=== PATIENT | male | born 1990 | race Caucasian/White ===

== ENCOUNTER 2023-10-08 12:01 | Emergency (ER) | payer MEDICAID, SELFPAY ==
[2023-10-08 12:05] VITALS: BP 130/69; PULSE 92; O2SAT 97
[2023-10-08 12:09] VITALS: BP 130/69; PULSE 102; RESP 14; TEMP 36.9; O2SAT 98; BMI 30.1
--- NOTE | 2023-10-08 12:19 | CT_ITS ---
PROCEDURE INFORMATION: Exam: CT Maxillofacial Without Contrast Exam date and time: 10/08/2023 12:33 PM Age: 33 years old Clinical indication: Injury or trauma; Other: Baseball to face; Blunt trauma (contusions or hematomas); Nose; Additional info: Baseball to face, midface pain TECHNIQUE: Imaging protocol: Computed tomography of the face without contrast. Radiation optimization: All CT scans at this facility use at least one of these dose optimization techniques: automated exposure control; mA and/or kV adjustment per patient size (includes targeted exams where dose is matched to clinical indication); or iterative reconstruction. COMPARISON: No relevant prior studies available. FINDINGS: Orbital cavities: Globes are symmetric. Orbital rims/jorge are intact. Intraconal fat appear unremarkable. Lacrimal glands are unremarkable. Paranasal sinuses: Normal. No air-fluid levels. Bones: No acute fracture of the maxillofacial region. Soft tissues: Unremarkable. IMPRESSION: No acute fracture of the maxillofacial region.
[2023-10-08] MEDS: ACETAMINOPHEN 500MG TAB 1000 MG PO (12:29)
[2023-10-08] MEDS: IBUPROFEN 400 MG TABLET 800 MG PO (12:29)
[2023-10-08] MEDS: LIDOCAINE 1% W/EPI 1:100,000 20ML VIAL 20 ML IJ (12:30)
--- NOTE | 2023-10-08 12:41 | ED_ITS ---
Discharge Plan Disposition Patient Disposition: Home, Self-Care Condition: Good Referrals Follow up/Referrals: Jose Martin MD [Primary Care Provider] - See instructions Activity Restrictions/Add. Instructions Additional Instructions/Restrictions: You were evaluated in the emergency department today. For your eye, use the ointment provided to you 3-4 times a day while awake for the next 3 days or until your symptoms have resolved. Follow-up closely with an eye doctor. Please keep your wounds clean and dry. Do not submerge under any water until they have completely healed. Running water over your face in the shower is okay. Your sutures are absorbable and should dissolve over the next 7 to 10 days. The glue on your nose will come off on its own. Follow-up closely with your primary care provider for wound recheck. Take Tylenol and ibuprofen at home as needed for pain. Return to the emergency department for new or worsening symptoms, such as significant worsening in pain, pus draining from the wounds, or new redness/swelling. Clinical Impressions Clinical Impression: Face lacerations, Corneal abrasion, left Stand Alone Forms Stand Alone Forms: Work/School Release Instructions Patient Instructions: DI for Corneal Abrasion, DI for Laceration Repair Discharge ED Provider: Susan Ferrer General Adult HPI General Chief complaint: Wound/Laceration Stated complaint: laceration in between eyes on forhead Time Seen by Provider: 10/08/23 12:09 Mode of Arrival: Ambulatory Source of Information: Patient Limitations: No Limitations Description of Symptoms (Recalled from ER Triage Doc. by RN): pt states he was at a baseball practice and was the catcher. pt was hit in the face with a foul ball. pt presents with a lac between his eyebrows and on the bridge of his nose from impact. pt denies LOC. pt states his pain is 6/10, dull and pressure. the lacs are not bleeding at this time. pt reports his last tetnus vaccine was 2years ago. History of Present Illness HPI narrative: This patient is a 33-year-old male who denies significant past medical history presenting to the emergency department for evaluation with concern for laceration to the face. Patient was at baseball practice and he was a catcher when a foul ball came back and hit him in the face. He has a laceration between his eyebrows as well as a small laceration to his nose. No loss of consciousness noted. No bleeding from his nose noted. No visual disturbance or other concerns. He was well prior to this. His last tetanus shot was within the last 2 to 3 years. Related Data Allergies Allergy/AdvReac Type Severity Reaction Status Date / Time bupropion [From Wellbutrin] AdvReac Intermediate Other Verified 10/08/23 12:16 [facility] Disclaimer: The information contained in this section may have been updated after the patient was seen, as this information can be updated by other users. Social History Smoking Status: Current every day smoker alcohol intake: never current occupational status: employed Travel in the last 8 weeks: None ROS Obtained: Yes All systems reviewed & no additional complaints except as documented Physical Exam General General appearance: alert and in no apparent distress Head Head exam: normocephalic and other (2 cm laceration between the eyebrows that is linear and hemostatic. Very superficial 1 cm laceration to the bridge of the no se. No significant soft tissue swelling. No palpable bony step-offs or instability.) Eye Eye exam: Present normal appearance, PERRL and EOMI ENT ENT exam: Present normal oropharynx, mucous membranes moist, normal external ear exam and other (Lacerations as above. No septal hematoma, bleeding from the nose, or other concerns.) Neck Neck exam: Present normal inspection, full ROM and trachea midline; Absent tenderness Chest Chest inspection: Present normal inspection and symmetric chest wall rise; Absent tenderness Respiratory Respiratory exam: Present normal lung sounds bilaterally; Absent respiratory distress, wheezes, stridor or accessory muscle use Cardiovascular Cardiovascular exam: Present regular rate and normal rhythm Abdominal Exam Abdominal exam: Present soft; Absent distention, tenderness or guarding Extremities Exam Extremities exam: Present normal inspection, full ROM and normal capillary refill; Absent tenderness or edema Back Exam Back exam: Present normal inspection and full ROM; Absent tenderness Neurological Exam Neurological exam: Present alert, oriented X3, CN II-XII intact and normal gait; Absent motor sensory deficit Psychiatric Psychiatric exam: Present normal affect and normal mood Skin Skin exam: Present warm and dry Medical Decision Making Medical Records Medical records reviewed: Yes I reviewed the patient's medical records. Pan Inquiry Pt receiving controlled substance: No Vital Signs: 10/08/23 12:05 10/08/23 12:09 Temperature 98.4 F Temperature Source Oral Pulse Rate 92 H Pulse Rate [Left] 102 H Respiratory Rate 14 Blood Pressure 130/69 Blood Pressure [Right Arm] 130/69 Blood Pressure Mean [Right Arm] 89 Blood Pressure Source [Right Arm] Automatic Cuff Blood Pressure Position [Right Arm] Sitting 02 Sat by Pulse Oximetry 97 98 Oxygen Delivery Method Room Air Room Air Lab Data Lab results reviewed: Yes I reviewed the patient's lab results. Orders (Tests/Meds): ED MEDICATIONS Discontinued Medications Generic Name Dose Route Start Last Admin Trade Name Allen PRN Reason Stop Dose Admin Acetaminophen 1,000 mg 10/08/23 12:19 10/08/23 12:29 Acetaminophen 500mg Tab PO 10/08/23 12:20 1,000 mg ONCE ONE Administration Ibuprofen 800 mg 10/08/23 12:19 10/08/23 12:29 Ibuprofen 400 Mg Tablet PO 10/08/23 12:20 800 mg ONCE ONE Administration Lidocaine/Epinephrine 20 ml 10/08/23 12:19 10/08/23 12:30 Lidocaine 1% W/Epi 1:100,000 20ml Vial IJ 10/08/23 12:20 20 ml ONCE ONE Administration ORDERS Category Date Time Status CT facial bones wo con Stat Cat Scan 10/08/23 12:19 Taken Medical Decision Narrative: In summary, this patient is a 33-year-old male presenting to the Emergency Department for evaluation of facial lacerations. Differential diagnoses considered include but are not limited to laceration, abrasion, foreign body, fracture, concussion. Ruling out the most morbid conditions drove assessment. On exam, the patient is very well-appearing. He has a laceration between his eyebrows that is 2 cm as well as a very superficial laceration to the bridge of his nose that is 1 cm. No palpable step-offs, deformities, no bleeding from the nose, and no septal hematoma noted. No loss of consciousness or neurologic symptoms that would suggest significant intracranial injury. Workup included CT scan of the face without IV contrast. Patient was given oral Tylenol and ibuprofen for pain. He is already up-to-date on tetanus. I independently interpreted CT scan prior to radiology read and noted no displaced fracture. Please see radiology read for final interpretation. Lacerations were repaired without difficulty after thorough irrigation and cleaning. Please see procedure notes for further documentation. While was repairing his lacerations, patient noted that he felt a foreign body sensation in his left eye. I did stain his left eye and noted a small corneal abrasion on the inferolateral aspect of his left eye. For this, I gave him topical antibiotic ointment here in the emergency department. He was given instructions for use and supportive management at home as well as instructions for close follow-up with an eye doctor and strict return precautions. He was also given instructions for wound care and strict return precautions should he develop any signs of infection. Patient was discharged in stable condition after all questions were answered. Procedures Risk/Benefits of Procedure(s) Were Explained: Yes Laceration Laceration 1: Site: face Size (cm): 2 Description: linear Depth: simple, single layer Local Anesthetic: lidocaine 1% and with epi Amount of anesthesia used (mL): 1.5 Pre-repair: wound explored Skin layer closed with: other (fast absorbing gut) Size (cm): 5-0 Number of sutures: 6 Technique: simple, interrupted Laceration 2: Site: face Size (cm): 1 Description: linear Depth: simple, single layer Pre-repair: wound explored, irrigated extensively and deep structures intact Skin layer closed with: Dermabond Critical Care Critical Care Time Critical Care Time: No
[2023-10-08 13:32] VITALS: BP 91/60; PULSE 65; RESP 20; TEMP 36.9; O2SAT 99
[2023-10-08] MEDS: POLYMYXIN B OP (13:32)
[2023-10-08] MEDS: DEXAMETHASONE OP (13:32)
[2023-10-08] MEDS: NEOMYCIN OP (13:32)
[2023-10-08] MEDS: TETRACAINE 0.5% OPTH SOL 15ML OP (13:32)
[2023-10-08 13:36] VITALS: BP 103/60; PULSE 82; RESP 20; TEMP 36.9; O2SAT 98
== END 2023-10-08 13:34 | disposition home or self-care (01) ==
PROVIDERS: Emergency Provider Emergency Medicine; PCP Family Medicine
DX: S01.81XA Laceration without foreign body of other part of head, initial encounter (principal); S05.02XA Injury of conjunctiva and corneal abrasion without foreign body, left eye, initial encounter; W21.03XA Struck by baseball, initial encounter; Y93.64 Activity, baseball
CPT/HCPCS: 12013; 70486; 99284

== ENCOUNTER 2024-09-28 10:16 | Outpatient (CLI) | payer MEDICAID, SELFPAY ==
--- OUTSIDE RECORDS SUMMARY | 2024-09-20 09:15 | XMS_ITS | Encounter Summary ---
Author Organization [place] [address] Care Team Providers Care Sheet Metal Mechanic Name Role Phone Miguelina Barrett APRN Primary Care Provider [phone] Reason for Visit * Reason Comments Establish Care Encounter Details Date Type Department Care Team (Late st Contact Info) Description 09/20/2024 9:15 AM EDT Office Visit [facility] [place] [address] [place] [address] Miguelina Barrett APRN [address] [place] [address] Encounter to establish care (Primary Dx); Chronic hepatitis C without hepatic coma (HCC); Uncomplicated opioid dependence (HCC); Polysubstance use disorder; Benzodiazepine dependence (HCC); Anxiety; Insomnia, persistent Social History Tobacco Use Types Packs/Day Years Used Date Smoking Tobacco: Former Cigarettes 0.5 11.7 S tarted: 02/02/2013 Smokeless Tobacco: Former Alcohol Use Standard Drinks/Week Comments No 0 (1 standard drink = 0.6 oz pur e alcohol) PHQ-2 Answer Date Recorded PHQ-2 Total Score 0 09/20/2024 Sexually Active Control Partners Comments Yes Condom Female Sex and Gender Information Value Date Recorded Sex Assigned at Not on file Legal Sex Male 9:21 PM EDT Gender Identity Not on file Sexual Orientation Not on file documented as of this encounter Last Filed Vital Signs Vital Sign Reading Time Taken Comments Blood Pressure 110/78 09/20/2024 9:11 AM EDT Pulse 100 09/20/2024 9:11 AM EDT Temperature 35.8 C (96.5 F) 09/20/2024 9:11 AM EDT Respiratory Rate 18 09/20/2024 9:11 AM EDT Oxygen Saturation 99% 09/20/2024 9:11 AM EDT Inhaled Oxygen Concentration - - Weight 72.9 kg (160 lb 12.8 oz) 09/20/2024 9:11 AM EDT Height - - Body Mass Index 23.07 02/02/2017 2:58 AM EST documented in this encounter Functional Status * PHQ-9 Total Score Answer Date of Assessment Author 0 09/20/2024 9:17 AM EDT Kaitlin Venegas MA * Question Answer Date of Assessment Author Little interest or pleasure in doing things 0 09/20/2024 9:17 AM EDT Susan Venegas MA Feeling down, depressed, or hopeless 0 0705/2024 9:17 AM EDT Susan Venegas MA PHQ-2 Total Score 0 09/20/2024 9:17 AM EDT Susan Venegas MA * PHQ-2 Total Score Answer Date of Assessment Author 0 09/20/2024 9:17 AM EDT Kaitlin Venegas MA documented as of this encounter Ordered Prescriptions Prescription Sig Dispense Quantity Refills Last Filled Start Date End Date QUEtiapine (SEROQUEL) 50 mg Oral TabletIndications: Insomnia, persistent Take 2 Tablets by mouth nightly. 60 Tablet 2 09/20/2024 lisinopriL (PRINIVIL;ZESTRIL) 10 mg Oral Tablet Take 1 Tablet by mouth daily. 90 Tablet 3 09/20/2024 hydrOXYzine (ATARAX) 50 mg Oral TabletIndications: Anxiety Take 1 Tablet by mouth 3 times daily as needed for Anxiety. 90 Tablet 2 09/20/2024 documented in this encounter Progress Notes * Miguelina Barrett APRN - 09/20/2024 9:15 AM EDTAssociated Problem(s): Hepatitis C virus infection without hepatic coma Per patient, was treated a year ago, had labs two months ago that were showed no active disease. * Miguelina Barrett APRN - 09/20/2024 9:15 AM EDTAssociated Problem(s): Uncomplicated opioid dependence (HCC) Followed by addiction medicine clinic in [place], [place]. On Brixadi and in counseling * Miguelina Barrett APRN - 09/20/2024 9:15 AM EDTAssociated Problem(s): Polysubstance use disorder Hx of polysubstance abuse. Sober from recreational drugs for several years. Not on Brixadi and formerly prescribed clonazepam. * Miguelina Barrett APRN - 09/20/2024 9:15 AM EDTAssociated Problem(s): Benzodiazepine dependence (HCC) Pt reports on Klonopin for years. Formerly prescribed by PCP at [facility] in [place]. Per pt, his former pcp left the practice and he was not able to get in with a new provider for 2.5 monthsto get it refilled so came here. I called and discussed this with the clinic and according to theirnotes, he was able to get right in with the new doctor and seen in July but had a failed drug screentherefore he was referred out to psychiatry and was given a 20-day refill (he may possibly be referring to psychiatry when saying he couldn't get into the new doctor for 2.5 months). He has been out completely for over a week. He has past withdrawal symptoms Advised that I will not refill his klonopin today. He was upset by this although he was made aware at scheduling that I will not prescribe controlled substances. I did provide him with contact information for [facility] or suggested he follow-up with his former PCP office. * Miguelina Barrett APRN - 09/20/2024 9:15 AM EDTAssociated Problem(s): Anxiety Long-standing history of anxiety, panic attacks. Reports he has tried several medications. Klonopinworks best for him. Advised that I will not refill or continue klonopin (this decision was made dueto the fact he is on buprenorphine and previously failed drug screen). Provided psych referral today. Sent in atarax 50mg TID and increased nightly seroquel dosing to help manage his symptoms. Orders: hydrOXYzine (ATARAX) 50 mg Oral Tablet; Take 1 Tablet by mouth 3 times daily as needed for Anxiety. * Miguelina Barrett APRN - 09/20/2024 9:15 AM EDT Assessment & Plan Encounter to establish care Chronic hepatitis C without hepatic coma (HCC) Per patient, was treated a year ago, had labs two months ago that were showed no active disease. Uncomplicated opioid dependence (HCC) Followed by addiction medicine clinic in [place], [place]. On Brixadi and in counseling Polysubstance use disorder Hx of polysubstance abuse. Sober from recreational drugs for several years. Not on Brixadi and formerly prescribed clonazepam. Benzodiazepine dependence (HCC) Pt reports on Klonopin for years. Formerly prescribed by PCP at [facility] in [place]. Per pt, his former pcp left the practice and he was not able to get in with a new provider for 2.5 monthsto get it refilled so came here. I called and discussed this with the clinic and according to theirnotes, he was able to get right in with the new doctor and seen in July but had a failed drug screentherefore he was referred out to psychiatry and was given a 20-day refill (he may possibly be referring to psychiatry when saying he couldn't get into the new doctor for 2.5 months). He has been out completely for over a week. He has past withdrawal symptoms Advised that I will not refill his klonopin today. He was upset by this although he was made aware at scheduling that I will not prescribe controlled substances. I did provide him with contact information for psychiatry [facility] or suggested he follow-up with his former PCP office. Anxiety Long-standing history of anxiety, panic attacks. Reports he has tried several medications. Klonopinworks best for him. Advised that I will not refill or continue klonopin (this decision was made dueto the fact he is on buprenorphine and previously failed drug screen). Provided psych referral today. Sent in atarax 50mg TID and increased nightly seroquel dosing to help manage his symptoms. Orders: hydrOXYzine (ATARAX) 50 mg Oral Tablet; Take 1 Tablet by mouth 3 times daily as needed for Anxiety. Insomnia, persistent Orders: QUEtiapine (SEROQUEL) 50 mg Oral Tablet; Take 2 Tablets by mouth nightly. Progress Note: Vitals: 09/20/24 0911 BP: 110/78 Pulse: 100 Resp: 18 Temp: 96.5 ??F (35.8 ??C) TempSrc: Temporal SpO2: 99% Weight: 160 lb 12.8 oz (72.9 kg) Body mass index is 23.07 kg/m??. SUBJECTIVE: Chief Complaint Patient presents with Establish Care HPI: Well Adult: Subjective Mr. Gimenez is a 34 y.o. male here for an establish care. PMH most sig for: Polysubstance abuse. Reports he has been off recreational drugs for several years. On suboxone injection from addiction medicine in [facility] Anxiety, panic attacks, insomnia. Most recently prescribed seroquel 50mg nightly and Klonopin 0.5mgBID. States that he has tried several medications for management of his symptoms and that these have been the most effective at managing his symptoms. His former [facility] prescribing his m edications but then left the practice. States that he was referred to another PCP in the same practice but couldn't get in for 2.5 months and now out of [facility]. According to care everywhere records, he did see the new PCP on 07/26/24, had a failed drug screen. He did refill his medication for 20 day supply with referral to psychiatry. I called and confirmed this with the office staff. His office note states: ?This patient comes in as a follow-up to abnormal screening for controlled substances. Patient was requesting clonazepam evidently had been on it has been on this medication for about 4 to 5 years hestates it does a good job at controlling his anxiety.He was wanting refill we got routine drug compliance testing which showed several other products including medicine phentermine andGabapentin.An appointment was made through psychiatry ER possible medication abuse physician. He has an appointmentin the latter part of this this month the patient was going to need his current clonazepam we will give him enough until his referral is is in process.Otherwise physical examination was not too remark able vital signs were normal no other changes are made thank you Patient states that he did run out over a week ago. Thinks may have had a seizure once. Has been feeling very anxious, irritable and on edge since running out. He has increased his night-time dose ofseroquel to help manage some of his night-time sypmptoms and that has helped. He was made aware at the time of scheduling his appointment that I do not write controlled medications. He then stated that he heard I can ask a doctor in the office to write it for him . I did explain that we do not follow that protocol Health Maintenance Due Topic Date Due Annual Wellness Exam Never done Hepatitis B Vaccine (1 of 3 - 19+ 3-dose series) Never done COVID-19 Vaccine ( season) Never done Health Maintenance Topic Date Due Annual Wellness Exam Never done Hepatitis B Vaccine (1 of 3 - 19+ 3-dose series) Never done COVID-19 Vaccine ( season) Never done Influenza Vaccine (1) 11/19/2024 DTaP/TDaP/Td (3 - Td or Tdap) 07/07/2031 Meningococcal B Vaccine Aged Out Pneumococcal Vaccine 0-49 Aged Out Immunization History Administered Date(s) Administered Tdap 11/11/2015 Patient Active Problem List Diagnosis Uncomplicated opioid dependence (HCC) Cannabis use disorder, mild, in controlled environment, abuse Creatinine elevation Hepatitis C virus infection without hepatic coma Polysubstance use disorder Benzodiazepine dependence (HCC) Anxiety Essential hypertension Past Medical History: Diagnosis Date Hepatitis C antibody test positive 02/02/2017 High blood pressure Panic disorder Substance abuse (HCC) last use 6 mths ago - ivda Past Surgical History: Procedure Laterality Date CYST REMOVAL to back of head TONSILLECTOMY Allergies Allergen Reactions Bupropion Hcl Other (See Comments) Wellbutrin- Hallucinations Current Outpatient Medications on File Prior to Visit Medication Sig Dispense Refill BRIXADI 96 mg/0.27 mL SubQ solution, extended rel syringe Inject 96 mg subcutaneously every four weeks clonazePAM (KLONOPIN) 0.5 mg Oral Tablet TAKE ONE (1) TABLET TWICE A DAY BY ORAL ROUTE NEEDED, FOR ANXIETY. No current facility-administered medications on file prior to visit. Social History Socioeconomic History Marital status: Single Spouse name: None Number of children: None Years of education: None Highest education level: None Tobacco Use Smoking status: Former Current packs/day: 0.50 Average packs/day: 0.5 packs/day for 11.6 years (5.8 ttl pk-yrs) Types: Cigarettes Start date: 02/02/2013 Smokeless tobacco: Former Vaping Use Vaping status: Every Day Substances: Nicotine, Flavoring Devices: Disposable Substance and Sexual Activity Alcohol use: No Drug use: Yes Comment: hx of ivda -heroin, mj rarely, opiates to [facility] 01/31/17 Sexual activity: Yes Partners: Female control/protection: Condom Social History Narrative Lives with father (recovered alcoholic and substance abuse). Has a cat named Bill. Family History Problem Relation Age of Onset Substance Abuse Mother Substance Abuse Father Alcohol Abuse Father Parkinson's Disease Father Anxiety Disorder Father COPD Father Skin Cancer Sister Arthritis Sister No Known Problems Sister No Known Problems Brother Bleeding Prob Maternal Grandmother Cancer Maternal Grandfather bone cancer Other (bone cancer) Maternal Grandfather No Known Problems Paternal Grandmother Dementia Paternal Grandfather No Known Problems Son No Known Problems Son No results found. No results found for this visit on 09/20/24. Patient Care Team: Miguelina Barrett APRN as PCP - General (Nurse Practitioner-Family) Lab Results Component Value Date WBC 8.6 02/01/2017 HGB 16.0 02/01/2017 HCT 46.9 02/01/2017 PLT 267 02/01/2017 ALT 61 (H) 02/01/2017 AST 53 (H) 02/01/2017 NA 140 02/01/2017 K 4.0 02/01/2017 CL 98 02/01/2017 CREATININE 1.33 (H) 02/01/2017 BUN 25 (H) 02/01/2017 CO2 22 02/01/2017 TSH 0.417 02/01/2017 GLU 100 02/01/2017 Review of Systems Constitutional: Negative for fever. HENT: Negative for congestion. Respiratory: Negative for cough, shortness of breath and wheezing. Cardiovascular: Negative for chest pain, palpitations and leg swelling. Psychiatric/Behavioral: Positive for decreased concentration, dysphoric mood and sleep disturbance.The patient is nervous/anxious. OBJECTIVE: Physical Exam Constitutional: Appearance: Normal appearance. HENT: Head: Normocephalic and atraumatic. Pulmonary: Effort: Pulmonary effort is normal. Neurological: Mental Status: He is alert and oriented to person, place, and time. Psychiatric: Attention and Perception: Attention normal. Mood and Affect: Mood is anxious. Speech: Speech normal. Behavior: Behavior is cooperative. documented in this encounter Miscellaneous Notes * Patient Instructions - Miguelina Barrett APRN - 09/20/2024 9:15 AM EDT Call to establish with Psychiatry for medication management. documented in this encounter Plan of Treatment Not on file documented as of this encounter Goals Goal Patient Goal Type Associated Problems Recent Progress Patient-Stated? Author Blood Pressure < 140/90 Blood Pressure 110/78(2024 9:11 AM EDT) No Miguelina Barrett APRN Eat better, exercise, reach an ideal body weight General No Barbosa, Susan N, RMA Stay Tobacco Free Lifestyle No Barbosa, Susan N, RMA documented as of this encounter Visit Diagnoses Diagnosis Encounter to establish care- Primary Reserved for inherently not codable concepts WITHOUT codable children Chronic hepatitis C without hepatic coma (HCC) Uncomplicated opioid dependence (HCC) Opioid type dependence, unspecified Polysubstance use disorder Benzodiazepine dependence (HCC) Sedative, hypnotic or anxiolytic dependence, unspecified Anxiety Anxiety state, unspecified Insomnia, persistent Persistent disorder of initiating or maintaining sleep documented in this encounter Discontinued Medications Medication Sig Discontinue Reason Start Date End Da te lisinopriL (PRINIVIL;ZESTRIL) 10 mg Oral Tablet Take 10 mg by mouth daily. Reorder 09/20/2024 QUEtiapine (SEROQUEL) 50 mg Oral Tablet TAKE ONE (1) TABLET BY MOUTH EVERY NIGHT AT BEDTIME Reorder 09/20/2024 documented as of this encounter Historical Medications * This list may reflect changes made after this encounter. BRIXADI 96 mg/0.27 mL SubQ solution, extended rel syringe Inject 96 mg subcutaneously every four weeks clonazePAM (KLONOPIN) 0.5 mg Oral Tablet TAKE ONE (1) TABLET TWICE A DAY BY ORAL ROUTE NEEDED, FOR ANXIETY. QUEtiapine (SEROQUEL) 50 mg Oral Tablet TAKE ONE (1) TABLET BY MOUTH EVERY NIGHT AT BEDTIME 5 lisinopriL (PRINIVIL;ZESTR [place]) 10 mg Oral Tablet Take 10 mg by mouth daily. 5 added in this encounter Care Teams Sheet Metal Mechanic Relationship Specialty Start Date End Date Miguelina Barrett [place] [address] [place] [address] PCP - General Nurse Practitioner-Family 09/20/24 documented as of this encounter
[2024-09-28 14:23] LABS: Hematocrit 46.8 % (42.0-52.0); Hemoglobin 15.3 g/dL (14.1-18.0); Immature Granulocytes % 0.4 %; Mean Corpuscular HGB Conc 32.7 g/dL (31.8-35.4); Mean Corpuscular Hemoglobin 29.3 pg (27.0-31.2); Mean Corpuscular Volume 89.5 fl (80-94); Nucleated Red Blood Cells % 0 %; Platelet Count 348 K/mm3 (142-424); Red Blood Count 5.23 M/mm3 (4.60-6.20); Red Cell Distribution Width-SD 43.8 fL; White Blood Count 10.0 K/mm3 (4.8-10.8)
[2024-09-28 14:30] LABS: Alanine Aminotransferase 18 U/L (12-78); Albumin Level 4.8 g/dl (3.5-5.0); Albumin/Globulin Ratio 1.4 (1.1-1.8); Alkaline Phosphatase 82 U/L (38-126); Anion Gap 14.7 mEq/L (5-15); Aspartate Amino Transferase 22 U/L (17-59); Bilirubin,Total 0.6 mg/dl (0.2-1.3); Blood Urea Nitrogen 21 mg/dl (9-20); Calcium 9.9 mg/dl (8.4-10.2); Carbon Dioxide 31 mmol/L (22.0-30.0); Chloride 99 mmol/L (98-107); Cholesterol 238 mg/dl (140-200); Creatinine,Serum 0.90 mg/dl (0.66-1.25); Estimated Glomerular Filt Rate 95 ml/min (>60); GFR (African American) 116 ML/MIN (>60); Globulin 3.5 g/dL (1.3-3.2); Glucose 89 mg/dl (74-100); HDL Cholesterol 47 mg/dl (40-60); Potassium 3.7 mmoL/L (3.5-5.1); Sodium 141 mmol/L (136-145); Total Protein,Serum 8.3 g/dl (6.3-8.2); Triglycerides 95 mg/dl (30-150)
[2024-09-28 14:47] LABS: T4 (Thyroxine) 8.9 ug/dl (5.53-11.0)
[2024-09-28 15:01] LABS: Thyroid Stimulating Hormone 1.31 uIU/mL (0.465-4.68)
[2024-09-28 16:28] LABS: Hepatitis C Ab Qual. W/ RFX REACTIVE (Negative)
[2024-09-29 05:57] LABS: Hepatitis B Surface Antigen Negative (Negative)
--- OUTSIDE RECORDS SUMMARY | 2024-10-01 10:21 | XMS_ITS | Clinical Summary ---
Author Organization [facility] Address [address] [place] [address] Phone Care Team Providers Care [employer] Name Role Phone Miguelina Barrett APRN Primary Care Provider Allergies Active Allergy Reactions Criticality Noted Date Comments Bupropion Hcl Other (See Comments) 09/20/2024 Wellbutrin- Hallucinations Medications * This document contains information received from the source organization and may not represent a complete record from that organization. clonazePAM (KLONOPIN) 0.5 mg Oral Tablet TAKE ONE (1) TABLET TWICE A DAY BY ORAL ROUTE NEEDED, FOR ANXIETY. Active BRIXADI 96 mg/0.27 mL SubQ solution, extended rel syringe Inject 96 mg subcutaneously every four weeks Active hydrOXYzine (ATARAX) 50 mg Oral TabletIndicati ons:Anxiety Take 1 Tablet by mouth 3 times daily as needed for Anxiety. 90 Tablet 2 5 Active lisinopriL (PRINIVIL;ZEST RIL) 10 mg Oral Tablet Take 1 Tablet by mouth daily. 90 Tablet 3 5 Active QUEtiapine (SEROQUEL) 50 mg Oral TabletIndicati ons:Insomnia, persistent Take 2 Tablets by mouth nightly. 60 Tablet 2 5 Active Active Problems Problem Noted Date Diagnosed Date Polysubstance use disorder 09/20/2024 Assessment & Plan (09/20/2024 11:48 AM EDT): Hx of polysubstance abuse. Sober from recreational drugs for several years. Not on Brixadi and formerly prescribed clonazepam. Benzodiazepine dependence 09/20/2024 Assessment & Plan (09/20/2024 11:48 AM EDT): Pt reports on Klonopin for years. Formerly prescribed by PCP at [facility] in [place]. Per pt, his former pcp left the practice and he was not able to get in with a new provider for 2.5 months to get it refilled so came here. I called and discussed this with the clinic and according to their notes, he was able to get right in with the new doctor and seen in July but had a failed drug screen therefore he was referred out to psychiatry and [...] him with contact information for psychiatry at [facility] or suggested he follow-up with his former PCP office. Essential hypertension 07/06/2021 Anxiety 01/20/2021 Overview (09/20/2024): social anx/panic/sarmad Assessment & Plan (09/20/2024 11:48 AM EDT): Long-standing history of anxiety, panic attacks. Reports he has tried several medications. Klonopin works best for him. Advised that I will not refill or continue klonopin (this decision was made due to the fact he is on buprenorphine and previously failed drug screen). Provided psych referral today. Sent in atarax 50mg TID and increased nightly seroquel dosing to help manage his symptoms. Orders: hydrOXYzine (ATARAX) 50 mg Oral Tablet; Take 1 Tablet by mouth 3 times daily as needed for Anxiety. Hepatitis C virus infection without hepatic coma 02/10/2017 Overview (09/20/2024): Treated 2023 Assessment & Plan (09/20/2024 12:06 PM EDT): Per patient, was treated a year ago, had labs two months ago that were showed no active disease. Cannabis use disorder, mild, in controlled environment, abuse 02/04/2017 Creatinine elevation 02/04/2017 Uncomplicated opioid dependence 02/01/2017 Assessment & Plan (09/20/2024 11:48 AM EDT): Followed by addiction medicine clinic in [place], [place]. 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 Has been to [facility] ok. Vivitrol restarted today. 09/20/16 Sober for 6 weeks after last injection. Relapsed a couple of weeks ago. Using heroin, snorting 0.5 grams daily. Last use was 09/17/16. Denies other illicit drug use. Has been drinking alcohol about 4-5 shots of whiskey per day. Had been been doing 12 steps up to 2 weeks ago. Is not doing counseling. 07/16/16 Primary drug of choice is opiates. Started using opiate pain pills in 2006. Started for pain control after he broke a rib. Got out of control over the next couple of years. Started snorting in 2007. At max would snort up to 260 mg daily. Was incarcerated in 2012 was incarcerated and sober for 3.5 years. He relpased 04/2015 using opiate pain meds. Was snorting 30 mg of oxycodone daily for 1 month then a couple of weeks ago got some suboxone and weaned himself down. Started heroin 2011for about 6 months, sober for 3.5 years. Has used IV and snorting. At max injected 0.5 grams daily. Was incarcerated and did not return to heroin use after he was out. Overdosed on heroin in 2011, needed narcan No other drug or alcohol use recently. Last exposure to any opiate was 07/01/16 In the past used marijuana, sedatives, acid Denies methamphetamine, cocaine, K2, spice, Kratum, methadone. Legal issues included theft by unlawful taking, paraphernalia, possession of heroin. Currently on parole. Prior treatment includes drug court, counseling, and 12 [facility]. Detoxed in past at [facility] and [facility] Currently employed, has good transportation, has good family support. Denies financial issues. Denies hx of metal illness or treatment Denies HSI, AVH, anhedonia, despair DSMV Opioid Use Disorder diagnostic criteria Opioid Use Disorder requires at least 2 criteria be met within a 12 month period 1. Opioids are often taken in larger amounts or over a longer period of time than intended. yes 2. There is a persistent desire or unsuccessful efforts to cut down or control opioid use. yes 3. A great deal of time is spent in activities necessary to obtain the opioid, use the opiod, or recover from its effects. yes 4. Craving, or a strong desire to use opioids. yes 5. Recurrent opioid use resulting in failure to fulfill major role obligations at work, school, or home. yes 6. Continued opioid use despite having persistent or recurrent social or interpersonal problems caused or exacerbated by the effects of opioids. yes 7. Important social, occupational or recreational activities are given up or reduced because of opioid use. yes 8. Recurrent opioid use in situations in which it is physically hazardous. yes 9. Continued use despite knowledge of having a persistent or recurrent physical or psychological problem that is likely to have been caused or exacerbated by opioids. yes 10. * Tolerance as defined by either of the following: A. A need for markedly increased amounts of opiods to achieve intoxication or desired effect. yes B. Markedly diminished effect with continued use of the same amount of an opioid. yes 11. * Withdrawal, as manifested by either of the following: A. The characteristic opioid withdrawal syndrome. yes B. The same (or a closely related) substance are taken to relieve or avoid withdrawal symptoms. yes * This criterion is not considered to be met for those individuals taking opioids solely under appropriate medical supervision. Severity: Mild: 2-3 symptoms, Moderate: 4-5 symptoms, Severe: 6 or more symptoms 06/17/16 - Relapsed about 3 months ago after being clean for 3 years. Working on trying to get clean again. Been using opiates and benzos. Alcohol abuse 08/05/2014 09/20/2024 Overview (09/20/2016): Last alcohol use was 09/19/16 Encounters Date Type Department Care Team Description 09/20/2024 9:15 AM EDT Office Visit [facility] [address] [place] [address] Miguelina Barrett APRN Encounter to establish care (Primary Dx); Chronic hepatitis C without hepatic coma (HCC); Uncomplicated opioid dependence (HCC); Polysubstance use disorder; Benzodiazepine dependence (HCC); Anxiety; Insomnia, persistent from Last 3 Months Immunizations Immunization Administration Dates Next Due Tdap 11/11/2015 Surgical History Surgery Date Site/Laterality Comments CYST REMOVAL to back of head TONSILLECTOMY Medical History Medical History Date Comments Substance abuse (HCC) last use 6 mths ago - ivda Hepatitis C antibody test positive 02/02/2017 High blood pressure Panic disorder Family History Medical History Relation Name Comments No Known Problems Brother Alcohol Abuse Father Anxiety Disorder Father COPD Father Parkinson's Disease Father Substance Abuse Father Cancer Maternal Grandfather bone ca ncer bone cancer Maternal Grandfather Bleeding Prob Maternal Grandmother Substance Abuse Mother Dementia Paternal Grandfather No Known Problems Paternal Grandmother Arthritis Sister 1 Half-SIster Skin Cancer Sister 1 Half-SIster No Known Problems Sister 2 Half-Sister No Known Problems Son 1 No Known Problems Son 2 Relation Name Status Comments Brother Alive Father Alive Maternal Grandfather Maternal Grandmother Mother Alive Paternal Grandfather Paternal Grandmother Sister 1 Half-SIster Alive Sister 2 Half-Sister Alive Son 1 Alive Son 2 Alive Social History Tobacco Use Types Packs/Day Years [...] on file Sexual Orientation Not on file Obstetrics History Last Filed Vital Signs Vital Sign Reading Time Taken Comments Blood Pressure 110/78 09/20/2024 9:11 AM EDT Pulse 100 09/20/2024 9:11 AM EDT Temperature 35.8 C (96.5 F) 09/20/2024 9:11 AM EDT Respiratory Rate 18 09/20/2024 9:11 AM EDT Oxygen Saturation 99% 09/20/2024 9:11 AM EDT Inhaled Oxygen Concentration - - Weight 72.9 kg (160 lb 12.8 oz) 09/20/2024 9:11 AM EDT Height 177.8 cm (5' 10 ) 02/02/2017 2:58 AM EST Body Mass Index 23.07 02/02/2017 2:58 AM EST Plan of Treatment Health Maintenance Due Date Last Done Comments Annual Wellness Exam 07/27/1991 Hepatitis B Vaccine (1 of 3 - 19+ 3-dose series) 07/27/2007 COVID-19 Vaccine (2023-2 5 season) 2023 Influenza Vaccine (#1) 2024 7 (Declined), 12/25/2014 (Declined) DTaP/TDaP/Td (3 - Td or Tdap) 07/07/2031, 11/11/2015 Meningococcal B Vaccine Aged Out No l onger eligible based on patient's age to complete this topic Pneumococcal Vaccine 0-49 Aged Out No longer eligible based on patient's age to complete this topic Goals Goal Patient Goal Type Associated Problems Recent Progress Patient-Stated? Author Blood Pressure < 140/90 Blood Pressure 110/78(2024 9:11 AM EDT) No Arnold, Miguelina, [employer] Eat better, exercise, reach an ideal body weight General No Susan Barbosa, RMA Stay Tobacco Free Lifestyle No Susan Barbosa, RMA Insurance [facility] [place] [address] [facility] [place] [address] [facility] Advance Directives For more information, please contact: [phone] * Full Code (Latest Code Status on File) Date Activated Date Inactivated Comments 02/09/2017 8:38 PM 02/14/2017 2:09 PM * Full Code Date Activated Date Inactivated Comments 02/03/2017 3:24 PM 02/09/2017 8:35 PM * Full Code Date Activated Date Inactivated Comments 01/31/2017 1:24 PM 02/02/2017 1:45 AM Care Teams [employer] Relationship Specialty Start Date End Date Miguelina Barrett APRN [address] [place] [address] PCP - General Nurse Practitioner-Family 09/20/24
== END 2024-09-28 23:59 | disposition home or self-care (01) ==
LOC: LAB.DROPOF 10-01 10:17
PROVIDERS: PCP Nurse Practitioner Family; Visit Provider Nurse Practitioner Family
DX: F41.9 Anxiety disorder, unspecified (principal); F32.A Depression, unspecified; Z11.59 Encounter for screening for other viral diseases; I10 Essential (primary) hypertension
CPT/HCPCS: 80053; 80061; 80074; 84436; 84443; 85025; 87340; 87389; 87522